=== PATIENT | female | born 1970 | race Caucasian/White ===

== ENCOUNTER 2018-05-25 03:59 | Emergency (ER) | payer OTHER ==
--- NOTE | 2018-05-25 04:15 | ED ---
HPI Cardiac - HPI Summary HPI Summary: Pt is a 47 y/o F c/o waking up with tachycardia onsetting ~0230. Pt described feeling as her heart was racing and could not get to calm down. Assoc. Sx: SOB , tachycardia, fatigue, gas in chest (burping). Pt woke up ~0230 and had heart racing. Episode lasted ~30 mins, she kept walking around and needed to get some fresh air. Talked to electrical tester last weekend stress test doc heard leaky heart sound and said she had tachycardia. Pt has a FHx of CAD. PMHx: Thyroid disease, HTN, Greys disease. - History of Current Complaint Chief Complaint: EDDysrhythmPalp Stated Complaint: RAPID HEART RATE Time Seen by Provider: 05/25/18 04:01 Hx Obtained From: Patient Onset/Duration: Started Hours Ago - 1 1/2 hours, Resolved - 30 mins after onset Timing: Lasting Minutes - 30 mins Current Severity: None Pain Intensity: 0 Pain Scale Used: 0-10 Numeric Character: Dyspnea at Rest, Fast Alleviating Factor(s): Rest, Other: - fresh air, ambulation Associated Signs and Symptoms: Positive: Shortness of Breath, Palpitations - tachycardia Related History: Similar Episode/Dx as: - back when she was receiving chemotherapy - Allergy/Home Medications Allergies/Adverse Reactions: Allergies Allergy/AdvReac Type Severity Reaction Status Date / Time amoxicillin [From Augmentin] Allergy Unknown Verified 05/25/18 04:13 Reaction Details clavulanic acid Allergy Unknown Verified 05/25/18 04:13 [From Augmentin] Reaction Details PMH/Surg Hx/FS Hx/Imm Hx Endocrine/Hematology History: Reports: Hx Thyroid Disease - HYPERTHROID, HAD RADIATION, NOW HYPO Cardiovascular History: Reports: Hx Hypertension - WELL CONTROLLED Denies: Other Cardiovascular Problems/Disorders Respiratory History: Reports: Other Respiratory Problems/Disorders - HOLE IN LUNG OK AFTER HOSPITALIZATION GI History: Denies: Other GI Disorders Musculoskeletal History: Denies: Other Musculoskeletal History Sensory History: Reports: Hx Contacts or Glasses - BOTH Denies: Hx Hearing Aid Opthamlomology History: Reports: Hx Contacts or Glasses - BOTH Neurological History: Denies: Other Neuro Impairments/Disorders Psychiatric History: Reports: Hx Anxiety - PANIC ATTACKS - Cancer History Hx Chemotherapy: No Hx Radiation Therapy: Yes - THYROID, 2008 - Surgical History Surgery Procedure, Year, and Place[place] [facility] [place] [id number] [facility] [place] [facility] [place] [facility] [place]. 08/01/15, RIGHT THUMB LIGAMENT TEAR, [facility] Hx Anesthesia Reactions: No Infectious Disease History: No Infectious Disease History: Denies: Traveled Outside the [place] in Last 30 Days - Family History Known Family History: Positive: Cardiac Disease - Social History Occupation: Employed Full-time Lives: With Family - mother Alcohol Use: Rare Alcohol Amount: 2-3 PER MONTH Substance Use Type: Reports: None Smoking Status (MU): Never Smoked Tobacco Have You Smoked in the Last Year: No Review of Systems Positive: Fatigue Positive: Palpitations - fast heart rate Positive: Shortness Of Breath, Other - "gas in chest" All Other Systems Reviewed And Are Negative: Yes Physical Exam - Summary Physical Exam Summary: Appearance: Well-appearing, Well-nourished, lying in bed comfortably Skin: Warm, dry, no obvious rash Eyes: sclera anicteric, no conjunctival pallor ENT: mucous membranes moist, pharynx appears normal Neck: Supple, nontender Respiratory: Clear to auscultation, no signs of respiratory distress Cardiovascular: Normal S1, S2. No murmurs. Normal distal pulses in tibial and radial bilaterally. Abdomen: Soft, nontender, normal active bowel sounds present Musculoskeletal: Normal, Strength/ROM Intact Neurological: A&Ox3, awake and alert, mentation is normal, speech is fluent and appropriate Psychiatric: affect is normal, does not appear anxious or depressed Triage Information Reviewed: Yes Vital Signs On Initial Exam: Initial Vitals Temp Pulse Resp BP Pulse Ox 98.8 F 82 14 159/102 99 05/25/18 04:11 05/25/18 04:11 05/25/18 04:11 05/25/18 04:11 05/25/18 04:11 Vital Signs Reviewed: Yes Diagnostics - Vital Signs Vital Signs Temp Pulse Resp BP Pulse Ox 05/25/18 04:11 98.8 F 82 14 159/102 99 - Laboratory Result Diagrams: 05/25/18 04:36 05/25/18 04:36 Lab Statement: Any lab studies that have been ordered have been reviewed, and results considered in the medical decision making process. - Radiology 0427 Xray Interpretation: No Acute Changes Radiology Interpretation Completed By: ED Physician - Has been reviewed by provider. Pending official review Disposition - Diagnoses Provider Diagnoses: Heart palpitations Discharge - Sign-Out/Discharge Documenting (check all that apply): Patient Departure - Discharge Plan Condition: Good Disposition: HOME Patient Education Materials: Heart Palpitations (ED), Hypokalemia (ED) Referrals: Amos Farias MD [Primary Care Provider] - - Billing Disposition and Condition Condition: GOOD Disposition: Home
[2018-05-25 04:43] LABS: ABS Basophils 0.1 10^3/ul (0-0.2); ABS Eosinophils 0.4 10^3/ul (0-0.6); ABS Neutrophils 5.4 10^3/ul (1.5-7.7); ABS Nucleated RBC 0 10^3/ul; Eosinophil % 4.5 % (0-6); Hematocrit 39 % (35-47); Hemoglobin 13.3 g/dl (12.0-16.0); Lymphocyte % 30.6 % (25-47); Mean Corpuscular HGB Conc 34 g/dl (31-36); Mean Corpuscular Hemoglobin 30 pg (27-31); Mean Corpuscular Volume 88 fL (80-97); Mean Platelet Volume 7.3 um3 (7.4-10.4); Nucleated Red Blood Cells % 0; Platelet Count 286 10^3/ul (150-450); Red Blood Count 4.39 10^6/ul (4.00-5.40); Red Cell Distribution Width 14 % (10.5-15); White Blood Count 9.8 10^3/ul (3.5-10.8)
[2018-05-25 05:09] VITALS: BP 158/93
[2018-05-25] MEDS ORDERED: Potassium Chlor TAB* 20 MEQ TAB.ER PO ONE (05:11)
== END 2018-05-25 05:42 | disposition home or self-care (01) ==
LOC: ED 03:59
DX: R00.2 Palpitations (principal); R00.0 Tachycardia, unspecified; I11.9 Hypertensive heart disease without heart failure; R06.02 Shortness of breath; E03.9 Hypothyroidism, unspecified; F41.0 Panic disorder [episodic paroxysmal anxiety]; Z88.1 Allergy status to other antibiotic agents; Z88.0 Allergy status to penicillin; Z82.49 Family history of ischemic heart disease and other diseases of the circulatory system
CPT/HCPCS: 36415; 80053; 84443; 84484; 84702; 85025; 93005; 99282; A9270-GY